=== PATIENT | female | born 1960 | race Caucasian/White ===

== ENCOUNTER 2019-08-09 14:17 | Outpatient (CLI) | payer MEDICAID ==
[~2019-08-09] VITALS: Ht 162.6 cm; Wt 55.8 kg
[2019-08-09 14:45] VITALS: BP 139/84
[2019-08-10] MEDS ORDERED: PROBIOTIC1 EAC2 PO (10:12)
[2019-08-10] MEDS ORDERED: ARMOUR THYROID30 MG ORAL (10:12)
[2019-08-10] MEDS ORDERED: LOSARTAN POTASS50 MG ORAL (10:12)
[2019-08-10] MEDS ORDERED: PROGESTERONE100 MG PO (10:12)
[2019-08-10] MEDS ORDERED: HYDROCHLOROTH12.5 MG ORAL (10:12)
--- NOTE | 2019-08-10 18:45 | Consultation ---
DATE OF CONSULTATION: 08/09/2019 CHIEF COMPLAINT: Rectal bleeding, hemorrhoidal pain. HISTORY OF PRESENT ILLNESS: This is a very pleasant 59-year-old female, who came to office complaining of rectal pain from hemorrhoids. According to her, she stated that they were palpated on her exam. When she examined herself, she saw the hemorrhoids outside. Sometimes she can push them in side and sometimes not, so causing some pain. Minimum bleeding. She also complained of change in bowel habits, thinning of the stools. A 10 pounds of weight loss. According to her, she had a Cologuard done 2 years ago, which was negative. She was offered colonoscopy, but she did not want it. She also recently been treated by ENT doctor recently with a Z-Dionte followed by doxycycline. No nausea. No vomiting. No dysphagia. No odynophagia. No melena. No bright red blood per rectum. PAST MEDICAL HISTORY: 1. Hemorrhoids. 2. Hypertension. 3. Hypothyroidism. 4. Anxiety. 5. Left breast benign mass. PAST SURGICAL HISTORY: 1. Lumpectomy in 1997. 2. Tonsillectomy. MEDICATIONS: Please see medication reconciliation list. ALLERGIES: No known allergies. FAMILY HISTORY: Father had hypertension and coronary artery disease. Mother had coronary artery disease. SOCIAL HISTORY: The patient denies any alcohol. Quit tobacco in 2004. No drug abuse. REVIEW OF SYSTEMS: A 10-point review of systems was performed and positive for bloating, rectal pain, 10 pounds of weight loss. PHYSICAL EXAMINATION: VITAL SIGNS: Temperature 98.4, blood pressure 139/86, pulse is 86, respirations 20. HEENT: Normocephalic and atraumatic. Sclerae anicteric. NECK: Supple. No evidence of lymphadenopathy. CARDIOVASCULAR: Regular rate and rhythm. Plus S1-S2. LUNGS: Clear to auscultation bilaterally. ABDOMEN: Positive bowel sounds. Soft and nontender. No rebound. No guarding. No peritoneal sign. EXTREMITIES: No cyanosis, no clubbing, no edema. ASSESSMENT AND PLAN: A 59-year-old female with signs and symptoms of hemorrhoids, most consistent with external hemorrhoidal problems. The patient was offered a colonoscopy given the age of 59, change in bowel or stool consistency, and weight loss, but she refused. She was explained the risks of she is taking and she states that at this time she wants to treat her hemorrhoids aggressively and then decide. The patient was given the instruction for sitz baths 3 times a day. The patient was also given a prescription for Anusol-HC cream twice a day for 5 days at a time. The patient was advised to stay away from physical activity that increases the abdominal pressure including sit-ups. The patient to come back if she is symptomatic or if she changes her mind for colonoscopy. Joseph Mathis M.D. DR: MADIHA JOB#: [id number] CC:
== END 2019-08-09 16:26 | disposition home or self-care (01) ==
LOC: PAN 14:17
DX: K62.5 Hemorrhage of anus and rectum (principal); K64.4 Residual hemorrhoidal skin tags; R14.0 Abdominal distension (gaseous); Z87.891 Personal history of nicotine dependence; E03.9 Hypothyroidism, unspecified; F41.9 Anxiety disorder, unspecified
CPT/HCPCS: G0463

== ENCOUNTER 2020-01-17 12:39 | Outpatient (CLI) | payer MEDICAID, OTHER ==
[~2020-01-17 12:39] MED LIST: ARMOUR THYROID30 MG ORAL; HYDROCHLOROTH12.5 MG ORAL; LOSARTAN POTASS50 MG ORAL; PROBIOTIC1 EAC2 PO; PROGESTERONE100 MG PO
[2020-01-17 13:18] VITALS: BP 149/61
[2020-01-17] MEDS ORDERED: VSL#3 CAPSULE1 EACH PO (13:22)
--- NOTE | 2020-01-17 14:23 | General Progress Note ---
Assessment/Plan Assessment/Plan: weight loss hemorrhoids screening colon eval stool for O&P plan colonoscopy Subjective ROS Limited/Unobtainable: Yes Allergies: Coded Allergies: No Known Allergies (Unverified , 08/09/19) Objective Last 24 Hour Vital Signs Date Time Temp Pulse Resp B/P (MAP) Pulse Ox O2 Delivery O2 Flow Rate FiO2 01/17/20 13:18 98.8 18 149/61 (90) 95 General Appearance: alert EENT: normal ENT inspection Neck: supple Cardiovascular: normal rate Respiratory/Chest: decreased breath sounds Abdomen: normal bowel sounds, non tender, soft Extremities: non-tender Joseph Mathis MD Jan 17, 2020 14:23
== END 2020-01-17 14:39 | disposition home or self-care (01) ==
LOC: PAN 12:39
DX: R63.4 Abnormal weight loss (principal); K64.9 Unspecified hemorrhoids
CPT/HCPCS: 99212

== ENCOUNTER 2020-03-07 12:38 | Outpatient (CLI) | payer OTHER ==
[~2020-03-07 12:38] MED LIST changes: +VSL#3 CAPSULE1 EACH PO
--- NOTE | 2020-03-07 14:41 | General Progress Note ---
Subjective ROS Limited/Unobtainable: Yes Allergies: Coded Allergies: No Known Allergies (Unverified , 08/09/19) Objective General Appearance: alert EENT: normal ENT inspection Neck: supple Cardiovascular: normal rate Respiratory/Chest: decreased breath sounds Abdomen: normal bowel sounds, non tender, soft Extremities: non-tender Assessment/Plan Assessment/Plan: s/p colonoscopy cont VVSL #3 add Joseph Liu MD Mar 07, 2020 14:41
== END 2020-03-07 14:38 | disposition home or self-care (01) ==
LOC: PAN 12:38
DX: Z00.00 Encounter for general adult medical examination without abnormal findings (principal)
CPT/HCPCS: 99212